=== PATIENT | female | born 1945 | race Caucasian/White ===

== ENCOUNTER 2024-01-22 09:05 | Inpatient (IN) | payer MEDICARE ==
[~2024-01-22] VITALS: Ht 162.6 cm; Wt 90.7 kg
[2024-01-22] MEDS ORDERED: ASPIRIN 325 MG TABLET ONE (09:46)
[2024-01-22] MEDS: ASPIRIN 325 MG TABLET PO ONE (09:47)
[2024-01-22 09:50] LABS: BASOPHILS # (AUTO) 0.1 K/uL (0.0-0.2); BASOPHILS % (AUTO) 0.5 % (0.0-2.0); EOSINOPHILS % (AUTO) 0.3 % (0.0-6.0); HEMATOCRIT 36 % (33-45); HEMOGLOBIN 11.9 g/dL (11.5-14.8); LYMPHOCYTES # (AUTO) 1.5 K/uL (0.8-4.8); LYMPHOCYTES % (AUTO) 15.8 % (20.0-44.0); MEAN CORPUSCULAR HEMOGLOBIN 29 PG (26.0-33.0); MEAN CORPUSCULAR HGB CONC 33 g/dl (31.0-36.0); MEAN CORPUSCULAR VOLUME 87 fL (82-100); MONOCYTES # (AUTO) 0.7 K/uL (0.1-1.30); MONOCYTES % (AUTO) 6.8 % (2.0-12.0); NEUTROPHILS # (AUTO) 7.4 K/uL (1.8-8.9); NEUTROPHILS % (AUTO) 76.6 % (43.0-81.0); PLATELET COUNT (AUTO) 227 K/uL (150-450); RED BLOOD CELL COUNT(AUTO) 4.14 MIL/uL (4.0-5.2); RED CELL DISTRIBUTION WIDTH 15.2 % (11.5-15.0); WHITE BLOOD COUNT (AUTO) 9.6 K/uL (4.3-11.0)
[2024-01-22 09:58] LABS: CARBON DIOXIDE 29 mmol/L (21-32); CHLORIDE 109 mmol/L (98-107); CREATININE 0.7 mg/dL (0.6-1.3); GLUCOSE 112 mg/dL (74-106); POTASSIUM 4.1 mmol/L (3.5-5.1); SODIUM SERUM 142 mmol/L (136-145); UREA NITROGEN, BLOOD 17 mg/dL (7-18)
[2024-01-22 10:51] LABS: ALBUMIN 3.4 g/dL (3.4-5.0); BILIRUBIN,DIRECT 0.1 mg/dL (0.0-0.2); BILIRUBIN,TOTAL 0.5 mg/dL (0.2-1.0); TOTAL PROTEIN, SERUM 6.9 g/dL (6.4-8.2)
[2024-01-22] MEDS ORDERED: PRED5TAB PO (11:37)
[2024-01-22] MEDS ORDERED: ATOR80TA PO (11:37)
[2024-01-22] MEDS ORDERED: CYAN-51 PO (11:37)
[2024-01-22] MEDS ORDERED: AMLO-213 PO (11:37)
[2024-01-22] MEDS ORDERED: ASPI-1169 PO (11:37)
[2024-01-22] MEDS ORDERED: CHOL200010 PO (11:37)
[2024-01-22 12:00] VITALS: BP 136/75; TEMP 97.5; O2SAT 100
[2024-01-22 16:00] VITALS: BP 146/76; TEMP 98.1; O2SAT 96
[2024-01-22] MEDS: AMLODIPINE BESYLATE 10 MG TABLET PO SCH (17:54)
[2024-01-22] MEDS: predniSONE 5 MG TABLET PO SCH (17:54)
[2024-01-22] MEDS: ACETAMINOPHEN 325 MG TABLET PO PRN (17:55)
[2024-01-22 20:00] VITALS: BP 143/74; TEMP 98.6; O2SAT 94
[2024-01-22] MEDS: ATORVASTATIN 40 MG TABLET PO SCH (21:27)
[2024-01-23] MEDS ORDERED: CYANOCOBALAMIN 500 MCG TABLET PO SCH (09:00)
[2024-01-23] MEDS ORDERED: ASPIRIN 81 MG TAB.CHEW PO SCH (09:00)
[2024-01-23] MEDS ORDERED: CHOLECALCIFEROL 1,000 UNIT TABLET (VIT D3) PO SCH (09:00)
== END 2024-01-23 | disposition home or self-care (01) | DRG 313 ==
LOC: ER 09:11 → TELE1 11:28
PROVIDERS: ADMIT Nurse Practitioner Acute Care; ATTEND Nurse Practitioner Acute Care
DX: R07.89 Other chest pain (principal); I10 Essential (primary) hypertension; I77.6 Arteritis, unspecified; E78.5 Hyperlipidemia, unspecified; Z82.49 Family history of ischemic heart disease and other diseases of the circulatory system; Z80.9 Family history of malignant neoplasm, unspecified; Z79.82 Long term (current) use of aspirin; Z79.899 Other long term (current) drug therapy; K76.0 Fatty (change of) liver, not elsewhere classified
CPT/HCPCS: 36415; 71045-TC; 76705-TC; 80048-TC; 80076-TC; 83690-TC; 84484-TC; 85025-TC; 93307-TC; G0378; J7512